=== PATIENT | female | born 1945 | race African-American/Black ===

== ENCOUNTER 2019-01-26 17:52 | Emergency (ER) | payer MEDICARE ==
[~2019-01-26] VITALS: Ht 165.1 cm; Wt 62.6 kg
--- NOTE | 2019-01-26 17:55 | NUR ---
ED Nurse Note: Patient brought in by ambulance from home c/o left side buttocks pain radiating down to her leg. patient reports she fell earlier today around 1200 on the left bottocks. patient reports hx of sciatica. patient is alert awake x4 breathing unlabored and even.
[2019-01-26] MEDS ORDERED: Tylenol #3 tab (300mg/30mg) PO ONE (18:15)
--- NOTE | 2019-01-26 18:20 | NUR ---
ED Nurse Note: patient went to xray in stable condition
--- NOTE | 2019-01-26 19:04 | NUR ---
HAND-OFF: Report given to Zakia SAHNI. patient stable in bed
--- NOTE | 2019-01-26 19:05 | NUR ---
ED Nurse Note: report receive from BORA Ramos
[2019-01-26 19:15] VITALS: BP 148/90
[2019-01-26] MEDS ORDERED: ACETAMINOPHEN-1 EAC1 ORAL (19:18)
[2019-01-26 19:20] VITALS: BP 148/90
--- NOTE | 2019-01-26 19:20 | NUR ---
ER DISCHARGE NOTE: Patient is cleared to be discharged per ERMD, pt is aox4, on room air, with stable vital signs. pt was given dc and prescription instructions, pt was able to verbalize understanding, pt id band removed without complications. pt is able to ambulate with steady gait. pt took all belongings.
--- NOTE | 2019-01-26 20:16 | Emergency Room Report ---
History of Present Illness General Chief Complaint: Multiple Trauma/Fall Source: Patient, EMS Present Illness HPI 73-year-old female presents ED for evaluation. Brought in by EMS from home. Complaining of back pain radiating down the left leg. States that she tripped and fell today landing on her buttock. History of sciatica. Denies hitting her head or LOC. Pain is sharp, 9 out of 10, radiating to the left knee. Denies bowel or bladder incontinence. Denies leg or motor weakness. No other aggravating relieving factors. Denies any other associated symptoms Allergies: Coded Allergies: MORPHINE (Verified Allergy, Unknown, 01/26/19) Patient History Past Medical History: HTN, renal disease, dialysis Past Surgical History: none Pertinent Family History: none Social History: Denies: smoking, alcohol use, drug use Last Menstrual Period: n/a Now: No Immunizations: UTD Reviewed Nursing Documentation: PMH: Agreed; PSxH: Agreed Nursing Documentation-PMH Hx Hypertension: Yes Hx Dialysis: Yes - ,, Thursday, shunt on left arm Review of Systems All Other Systems: negative except mentioned in HPI Physical Exam Vital Signs Date Time Temp Pulse Resp B/P (MAP) Pulse Ox O2 Delivery O2 Flow Rate FiO2 01/26/19 17:47 98.2 79 18 192/86 (121) 98 Room Air 01/26/19 19:15 98 Sp02 EP Interpretation: reviewed, normal General Appearance: no apparent distress, alert, GCS 15, non-toxic, thin Head: normocephalic Eyes: bilateral eye normal inspection, bilateral eye PERRL ENT: normal ENT inspection Neck: normal inspection Respiratory: normal inspection Cardiovascular #1: normal inspection Gastrointestinal: normal inspection Rectal: deferred Genitourinary: no CVA tenderness Musculoskeletal: normal range of motion, tender - L hip pain Neurologic: alert, oriented x3, responsive, motor strength/tone normal, sensory intact, speech normal Psychiatric: normal inspection Skin: no rash Lymphatic: normal inspection Medical Decision Making Diagnostic Impression: Primary Impression: Contusion of leg Qualified Codes: S80.12XA - Contusion of left lower leg, initial encounter Additional Impression: Multiple injuries due to trauma ER Course Hospital Course 73 yo F presents to ED c/o L hip and knee pain s/p fall Differential diagnoses include: Fracture, dislocation, sprain, contusion Clinical course Patient placed on stretcher. After initial history and physical, I ordered pain medications and Xrays of pelvis, hip knee and femur Xrays prelim read shows no acute fracture/dislocation. When placed on left knee. On reassessment pain is improved. She is wearing a "brace" around her hip because [facility] will not give her any more pain medication. I reviewed [facility] and patient does have some narcotic prescriptions mostly few tablets supply at the time last prescription was given 1 month ago. I agreed to provide her with a 3-day supply of medication but explained that she needs to follow-up with her PMD. Patient agrees. On reassessment pain is improved and patient is walking in ED Diagnosis -leg contusion Stable and discharged to home with prescription for tylenol #3. apply ice, keep elevated. weight bear as tolerated. Followup with PMD. Return to ED if symptoms recur or worsen Other X-Ray Diagnostic Results Other X-Ray Diagnostic Results #1: X-Ray ordered: Pelvis + L hip # of Views/Limited Vs Complete: 3 View Indication: Pain EP Interpretation: Yes Interpretation: no dislocation, no soft tissue swelling, no fractures Impression: No acute disease Electronically Signed by: Electronically signed by Ivan Kearns MD Other X-Ray Diagnostic Results #2: X-Ray ordered: L femur # of Views/Limited Vs Complete: 3 View Indication: Pain EP Interpretation: Yes Interpretation: no dislocation, no soft tissue swelling, no fractures Impression: No acute disease Electronically Signed by: Electronically signed by Ivan Kearns MD Other X-Ray Diagnostic Results #3: X-Ray ordered: L knee # of Views/Limited Vs Complete: 3 View Indication: Pain EP Interpretation: Yes Interpretation: no dislocation, no soft tissue swelling, no fractures, other - knee hardware in palce Impression: No acute disease Electronically Signed by: Electronically signed by Ivan Kearns MD Last Vital Signs Date Time Temp Pulse Resp B/P (MAP) Pulse Ox O2 Delivery O2 Flow Rate FiO2 01/26/19 19:20 98.2 81 18 148/90 98 Room Air 01/26/19 19:15 98 Status: improved Disposition: HOME, SELF-CARE Condition: Improved Scripts Acetaminophen With Codeine (T#3) (TYLENOL #3 TAB*) Y Tab 1 TAB ORAL Q8H PRN for For Pain, #12 TAB Prov: Ivan Kearns MD 01/26/19 [facility] 24 hour /7 days a week by Appointment Only [address] [facility] [id number] Patient Instructions: Contusion-SportsMed Ivan Kearns MD Jan 26, 2019 20:16
--- NOTE | 2019-01-27 10:57 | Diagnostic Imaging Report ---
Indication: Pain, status post fall Technique: 3 views of the left knee Comparison: None Findings: There is left knee prosthesis which appears well aligned. No periprosthetic lucency demonstrated. No acute fractures. No dislocations. Impression: No acute bony trauma
--- NOTE | 2019-01-27 11:00 | Diagnostic Imaging Report ---
Indication: Pain, status post fall Technique: 3 views of the lumbar spine Comparison: None Findings: There is mild lumbosacral scoliotic deformity, may in part be an artifact of positioning. There is slight anterior offset of L4 on L5. The remaining bony alignment is normal. There is degenerative narrowing of the L4-5 disc which is asymmetric, predominantly on the left. The remaining disc spaces are preserved. The bones are osteoporotic. No acute fractures. The extraspinal soft tissues are unremarkable Impression: Degenerative changes and mild scoliotic deformity. No definite acute bony trauma Osteoporosis
--- NOTE | 2019-01-27 11:08 | Diagnostic Imaging Report ---
Indications: Pain, status post fall Technique: Two views of the left femur Comparison: None Findings: No acute fractures. No dislocations. There is a left knee arthroplasty prosthesis in place. Joint spaces are preserved. No radiopaque foreign body other than the prosthesis Impression: No acute process. Findings as noted
--- NOTE | 2019-01-27 11:09 | Diagnostic Imaging Report ---
Indication: Pain, status post fall Technique: One view of the pelvis, 2 views of the left hip Comparison: none Findings: No acute fractures. No dislocations. The joint spaces are preserved. Impression: No acute bony trauma Note, however, that in elderly osteoporotic patients nondisplaced hip and pelvic fractures can easily be occult. Consider cross-sectional imaging if there is high clinical suspicion
== END 2019-01-26 19:20 | disposition home or self-care (01) ==
LOC: EDBD 17:52 → EMR 19:00
DX: S80.12XA Contusion of left lower leg, initial encounter (principal); T07.XXXA Unspecified multiple injuries, initial encounter; Z88.6 Allergy status to analgesic agent; I12.0 Hypertensive chronic kidney disease with stage 5 chronic kidney disease or end stage renal disease; N18.6 End stage renal disease; Z99.2 Dependence on renal dialysis; M25.552 Pain in left hip; M54.9 Dorsalgia, unspecified; W01.0XXA Fall on same level from slipping, tripping and stumbling without subsequent striking against object, initial encounter; Y92.9 Unspecified place or not applicable
CPT/HCPCS: 72020; 73502; 99284